=== PATIENT | male | born 1960 ===

== ENCOUNTER 2017-05-30 19:53 | Emergency (ER) | payer OTHER ==
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
[2017-05-30 23:48] VITALS: BP 161/82; PULSE 88; RESP 16; TEMP 97.6; O2SAT 98
== END 2017-05-30 23:20 | disposition home or self-care (01) ==
LOC: H.ER 19:53
DX: S16.1XXA Strain of muscle, fascia and tendon at neck level, initial encounter (principal); M54.5 Low back pain; V43.52XA Car driver injured in collision with other type car in traffic accident, initial encounter; Y92.410 Unspecified street and highway as the place of occurrence of the external cause; E11.9 Type 2 diabetes mellitus without complications; E78.00 Pure hypercholesterolemia, unspecified; I10 Essential (primary) hypertension; I25.10 Atherosclerotic heart disease of native coronary artery without angina pectoris; Z95.5 Presence of coronary angioplasty implant and graft
CPT/HCPCS: 72040; 72100; 96372; 99282; J1885